=== PATIENT | male | born 1990 | race American Indian/Alaskan Native ===

== ENCOUNTER 2018-08-01 17:49 | Emergency (ER) | payer OTHER ==
[2018-08-01 18:02] VITALS: BP 153/85
--- NOTE | 2018-08-01 18:05 | Emergency Department Report ---
Chief Complaint: Chest Pain Stated Complaint: CP WITH TWI Time Seen by Provider: 08/01/18 18:03 - HPI History of Present Illness: This is a 28 y.o. male that presents with chest pain and SOB x 2 days. Patient was seen at Urgent and sent here with abnormal EKG. EKG bradycardia - Exam Vital Signs: Vital Signs 08/01/18 18:01 Temperature 98.6 F Pulse Rate 56 L Respiratory 20 Rate Blood Pressure 153/85 O2 Sat by Pulse 98 Oximetry MSE screening note: Focused history and physical exam performed. Due to findings the following was ordered: CXR and EKG ED Disposition for MSE Condition: Stable
--- NOTE | 2018-08-01 19:32 | XRay Report ---
PROCEDURE: XR CHEST ROUTINE 2V TECHNIQUE: PA and lateral views of the chest HISTORY: Chest Pain COMPARISONS: None FINDINGS: There is no evidence of infiltrate, pneumothorax or pleural fluid collection. The cardiomediastinal silhouette is normal in appearance. The bony structures are unremarkable. IMPRESSION: 1. No evidence of an acute pulmonary process. This document is electronically signed by Kaylie Mckeon MD., August 01 2018 07:30:14 PM ET
[2018-08-02] MEDS ORDERED: LIDOCAINE VISCOUS 2% PO ONE (00:34)
[2018-08-02] MEDS ORDERED: ALUM-MAG HYDROX-SIMETH 200-200-20MG/5ML PO ONE (00:34)
[2018-08-02] MEDS ORDERED: IBUPROFEN PO ONE (00:34)
[2018-08-02 01:14] LABS: Basophils % (Auto) 0.6 % (0.0-1.8); Eosinophils # (Auto) 0.1 K/mm3 (0.0-0.4); Eosinophils % (Auto) 1.9 % (0.0-4.3); Hematocrit 45.4 % (35.5-45.6); Hemoglobin 15.5 gm/dl (11.8-15.2); Lymphocytes # (Auto) 3.1 K/mm3 (1.2-5.4); Lymphocytes % (Auto) 43.3 % (13.4-35.0); Mean Corpuscular HGB Conc 34 % (32-34); Mean Corpuscular Volume 91 fl (84-94); Monocytes # (Auto) 0.5 K/mm3 (0.0-0.8); Monocytes % (Auto) 6.5 % (0.0-7.3); Platelet Count 241 K/mm3 (140-440)
[2018-08-02 01:37] LABS: Alanine Aminotransferase 11 units/L (7-56); Albumin 4.5 g/dL (3.9-5); BUN/Creatinine Ratio 6; Blood Urea Nitrogen 6 mg/dL (9-20); Calcium 9.4 mg/dL (8.4-10.2); Hemolysis Index 5
--- NOTE | 2018-08-02 01:43 | Emergency Department Report ---
ED Chest Pain HPI - General Chief Complaint: Chest Pain Stated Complaint: CP WITH TWI Time Seen by Provider: 08/01/18 18:03 Source: patient Mode of arrival: Ambulatory Limitations: No Limitations - History of Present Illness Initial Comments: This is a 28 y.o. male that presents with chest pain and SOB x 2 days. Patient was seen at Urgent and sent here with abnormal EKG. EKG bradycardia chest pain described as epigastric exacerbated by po intake, relieved by belching there is some abd bloating and flatulence no diarrhea no constipation no fever no chills there is no sob at this time no pt is 10 pack yr smoker, Complaint: chest pain Onset/Timin -: days(s) Onset: during rest (by correct. No medical history as well this is a one think it is reasonable Ms. Enriquez is 10 mg All of the ER was medical decision-making and minute Second ER admitted To Me so Heart Rate Visit Is Heart Rate 80s Systolic Blood Pressure Risk Factors reveals tenderness lungs the age and risk factors have known coronary artery is aspirin last ST elevation positive cardiac risk factors over 60 total dose 2.8% pleasant [place] again and the vascular disease obesity approximately), after eating Pain Location: epigastric Pain Radiation: RUE Severity: moderate (better now is) Severity scale (0 -10): 5 Quality: sharp (burning ) Consistency: intermittent Improves With: rest Worsens With: eating, movement Aspirin use within the Past 7 Days: (0) No - Related Data On Oral Contraceptives: No Previous Rx's Medication Instructions Recorded Last Taken Type Famotidine [Pepcid] 20 mg PO BID #60 tablet 08/02/18 Unknown Rx Ibuprofen 800 mg PO TID PRN #30 tablet 08/02/18 Unknown Rx Allergies Allergy/AdvReac Type Severity Reaction Status Date / Time No Known Allergies Allergy Unverified 08/01/18 17:53 Heart Score - HEART Score History: Slightly suspicious EKG: Normal Age: < 45 Risk factors: 1-2 risk factors Troponin: < normal limit HEART Score: 1 ED Review of Systems ROS: Stated complaint: CP WITH TWI Other details as noted in HPI Constitutional: denies: chills, fever Eyes: denies: eye pain, eye discharge, vision change ENT: denies: ear pain, throat pain Respiratory: shortness of breath. denies: cough, wheezing Cardiovascular: chest pain. denies: palpitations Endocrine: no symptoms reported Gastrointestinal: abdominal pain Genitourinary: denies: urgency, dysuria Musculoskeletal: denies: back pain, joint swelling, arthralgia Skin: denies: rash, lesions Neurological: denies: headache, weakness, paresthesias Psychiatric: denies: anxiety, depression Hematological/Lymphatic: denies: easy bleeding, easy bruising ED Past Medical Hx - Past Medical History Previous Medical History?: No - Surgical History Past Surgical History?: No - Social History Smoking Status: Current Every Day Smoker Substance Use Type: None - Medications Home Medications: Home Medications Medication Instructions Recorded Confirmed Last Taken Type Famotidine [Pepcid] 20 mg PO BID #60 tablet 08/02/18 Unknown Rx Ibuprofen 800 mg PO TID PRN #30 tablet 08/02/18 Unknown Rx ED Physical Exam - General Limitations: No Limitations General appearance: alert, in no apparent distress - Head Head exam: Present: atraumatic, normocephalic - Eye Eye exam: Present: normal appearance, PERRL, EOMI Pupils: Present: normal accommodation - ENT ENT exam: Present: normal orophraynx, mucous membranes moist - Expanded ENT Exam Expanded Throat exam: Positive: tonsillar erythema, other (uvula midline no exudate no lesions no stridor ). Negative: tonsillomegaly, tonsillar exudate, R peritonsillar mass, L peritonsillar mass - Neck Neck exam: Present: normal inspection, full ROM. Absent: tenderness, meningismus, lymphadenopathy, thyromegaly - Respiratory Respiratory exam: Present: normal lung sounds bilaterally. Absent: respiratory distress, wheezes, stridor, chest wall tenderness - Cardiovascular Cardiovascular Exam: Present: regular rate, normal rhythm, normal heart sounds. Absent: systolic murmur, diastolic murmur, rubs, gallop - GI/Abdominal GI/Abdominal exam: Present: soft, normal bowel sounds. Absent: distended, tenderness, guarding, rebound, rigid, bruit, hernia - Rectal Rectal exam: Present: deferred - Extremities Exam Extremities exam: Present: normal inspection - Back Exam Back exam: Present: normal inspection, full ROM. Absent: tenderness, CVA tenderness (R), CVA tenderness (L), muscle spasm, paraspinal tenderness, vertebral tenderness, rash noted ED Course Vital Signs 04/09/19 18:01 Temperature 98.6 F Pulse Rate 56 L Respiratory 20 Rate Blood Pressure 153/85 O2 Sat by Pulse 98 Oximetry DORIS score - Doris Score Age > 65: (0) No Aspirin use within the Past 7 Days: (0) No 3 or more CAD Risk Factors: (0) No 2 or more Angina events in past 24 hrs: (0) No Known CAD with more than 50% Stenosis: (0) No Elevated Cardiac Markers: (0) No ST Deviation Greater than 0.5mm: (0) No DORIS Score: 0 ED Medical Decision Making - Lab Data Result diagrams: 08/02/18 00:56 08/02/18 00:56 - EKG Data EKG shows normal: sinus rhythm, axis, intervals, QRS complexes, ST-T waves Rate: normal - EKG Data When compared to previous EKG there are: no significant change - Radiology Data Radiology results: report reviewed - Medical Decision Making This 28-year-old -Filipino EKGs sinus bradycardia heart rate 46 chest x- ray is clear ,no opacities infiltrate she ambulatory with steady gait, at this time Critical care attestation.: If time is entered above; I have spent that time in minutes in the direct care of this critically ill patient, excluding procedure time. ED Disposition Clinical Impression: Chest pain Qualifiers: Chest pain type: unspecified Qualified Code(s): R07.9 - Chest pain, unspecified Disposition: DC-01 TO HOME OR SELFCARE Is pt being admited?: No Does the pt Need Aspirin: No Condition: Stable Instructions: Chest Pain (ED) Prescriptions: Ibuprofen 800 mg PO TID PRN #30 tablet PRN Reason: pain Famotidine [Pepcid] 20 mg PO BID #60 tablet Referrals: ESME RUSSO MD [Referring] - 3-5 Days KIM MATOS MD [Staff Physician] - 3-5 Days Forms: Work/School Release Form(ED) Time of Disposition: 04:22
== END 2018-08-02 04:30 | disposition home or self-care (01) ==
LOC: ED 17:49
DX: R07.89 Other chest pain (principal); R06.02 Shortness of breath; F17.200 Nicotine dependence, unspecified, uncomplicated
CPT/HCPCS: 36415; 71046; 80053; 83735; 84484; 85025; 93005; 93010